=== PATIENT | female | born 1945 | race Caucasian/White ===

== ENCOUNTER 2020-12-11 10:22 | Day surgery (SDC) | payer MEDICARE ==
[~2020-12-11] VITALS: Ht 165.1 cm; Wt 69.6 kg
[~2020-12-11 10:22] MED LIST: CHOL10002 PO; GABA100 PO; HYDACE5325 PO; LEVSOD100 PO; LEVSOD50 PO; LISI20 PO; Metrocream45 GM; ORLI120 PO; OXYACE5T PO; Omeprazole20 M1 PO; SIMV40 PO; VENL150ER PO
== END 2020-12-11 13:32 | disposition home or self-care (01) ==
LOC: ORSCSDS 10:22
PROVIDERS: Internal Medicine Gastroenterology
PROC: 0DBH8ZX Excision of Cecum, Via Natural or Artificial Opening Endoscopic, Diagnostic (ICD-10-PCS; principal; 2020-12-11 12:00)
PROC: 0DB78ZX Excision of Stomach, Pylorus, Via Natural or Artificial Opening Endoscopic, Diagnostic (ICD-10-PCS; principal; 2020-12-11 12:00)
PROC: 0DB98ZX Excision of Duodenum, Via Natural or Artificial Opening Endoscopic, Diagnostic (ICD-10-PCS; principal; 2020-12-11 12:00)
PROC: 0DBE8ZX Excision of Large Intestine, Via Natural or Artificial Opening Endoscopic, Diagnostic (ICD-10-PCS; principal; 2020-12-11 12:00)
PROC: 0DBL8ZX Excision of Transverse Colon, Via Natural or Artificial Opening Endoscopic, Diagnostic (ICD-10-PCS; principal; 2020-12-11 12:00)
DX: R19.7 Diarrhea, unspecified (principal); R13.10 Dysphagia, unspecified; R11.2 Nausea with vomiting, unspecified; K21.9 Gastro-esophageal reflux disease without esophagitis; R14.0 Abdominal distension (gaseous); K31.7 Polyp of stomach and duodenum; D12.3 Benign neoplasm of transverse colon; D12.0 Benign neoplasm of cecum; K57.30 Diverticulosis of large intestine without perforation or abscess without bleeding; K64.8 Other hemorrhoids; I10 Essential (primary) hypertension; E78.5 Hyperlipidemia, unspecified; E03.9 Hypothyroidism, unspecified; Z87.891 Personal history of nicotine dependence; Z79.899 Other long term (current) drug therapy
CPT/HCPCS: 88305; 88342; J2704; J7120

== ENCOUNTER 2021-08-12 05:57 | Day surgery (SDC) | payer MEDICARE ==
[~2021-08-12] VITALS: Ht 165.1 cm; Wt 72.2 kg
[~2021-08-12 05:57] MED LIST changes: +AZIT250 PO; +CEPH500 PO; -CHOL10002 PO; +EUTHYROX50 MCG PO; -LEVSOD50 PO; +POTCHL20ER PO; +VISBIOME 112.51 EACH PO; +VITAMIN D31000 UNI1 PO; +ZESTRIL40 M1 PO
--- NOTE | 2021-08-12 06:57 | NUR ---
PT ADMITTED TO [facility]. AGREES WITH PLANNED SURGERY. LUNG SOUNDS CLEAR. NOZIN TO NARES BILATERALLY PER ORDER. PT UP TO VOID.
--- NOTE | 2021-08-12 18:20 | NUR ---
SHIFT SUMMARY PT A&OX4, VSS/RA, S/P R TKA, AQUACEL CDI, ELEVATED, TEDS/SCDS/POLAR AGUSTÍN. PAIN MANAGED WITH 5 MG OXY/TORADOL/TYLENOL. CHANEL PO. VOIDING WELL. AMB W/SBA/FWW/GB; PHYSICAL THERAPY KRISTI'Aubrey, SECOND SESSION AT 0800 TOMORROW. WILL REPORT TO CORONA SANCHEZ RN.
[2021-08-13 04:29] LABS: BASOPHILS ABSOLUTE AUTO 0.03 K/mm3 (0.00-0.23); BASOPHILS PERCENT AUTO 1 % (0-2); EOSINOPHILS PERCENT AUTO 2 % (0-6); Hemoglobin 9.2 g/dL (11.5-16.0); IMMATURE GRAN ABSOLUTE AUTO 0.01 K/mm3 (0.00-0.10); IMMATURE GRAN PERCENT AUTO 0 % (0-1); LYMPHOCYTES ABSOLUTE AUTO 0.82 K/mm3 (0.84-5.20); LYMPHOCYTES PERCENT AUTO 15 % (21-46); MONOCYTES ABSOLUTE AUTO 0.44 K/mm3 (0.16-1.47); MONOCYTES PERCENT AUTO 8 % (4-13); Mean Corpuscular HGB 32.7 pg (26.0-34.0); Mean Corpuscular HGB Conc 32.9 g/dL (31.5-36.5); Mean Corpuscular Volume 100 fL (80-100); Mean Platelet Volume 10.9 fL (9.1-12.4); NEUTROPHILS ABSOLUTE AUTO 3.92 K/mm3 (1.96-9.15); NEUTROPHILS PERCENT AUTO 74 % (41-73); Platelet Count 158 K/mm3 (150-400); RDW Coefficient Variation 12.7 % (11.7-14.2); RDW Standard Deviation 46.3 fL (35.1-46.3); Red Blood Cell Count 2.81 M/mm3 (3.80-5.20); White Blood Cell Count 5.32 K/mm3 (4.00-11.30)
[2021-08-13 05:35] LABS: Anion Gap 9 mmol/L (6-16); Blood Urea Nitrogen 10 mg/dL (8-24); Bun/Creatinine Ratio 15.8 (12.0-20.0); CO2, Blood 26 mmol/L (21-32); Calcium, Blood 8.7 mg/dL (8.5-10.1); Chloride, Blood 104 mmol/L (98-108); Creatinine, Blood 0.63 mg/dL (0.40-1.00); Glomerular Filtration Rate >60 (60-); Glucose, Blood 117 mg/dL (70-99); Potassium, Blood 4.3 mmol/L (3.5-5.5); Sodium, Blood 139 mmol/L (136-145)
[2021-08-13 05:39] LABS: Magnesium, Blood 1.1 mg/dL (1.6-2.4)
--- NOTE | 2021-08-13 05:42 | NUR ---
SHIFT SUMMARY PT A&O X4 AND IN PLEASENT MOOD. POD 1 TKA. PT RESTED COMFORTABLY IN BED T/O SHIFT. SBA TO BATHROOM T/O SHIFT W/ STEADY GAIT. TOLERATING PO INTAKE AND VOIDING WELL. PPP. AQUACEL IN PLACE CDI. CALL LIGHT W/IN REACH.
[2021-08-13] MEDS ORDERED: OXAYDO5 M1 PO (09:44)
[2021-08-13] MEDS ORDERED: ASPIR 8181 M1 PO (10:11)
--- NOTE | 2021-08-13 10:58 | NUR ---
DISCHARGE SUMMARY PT A&OX4, VSS, LEFT FLOOR VIA WC WITH RN, TO GO HOME WITH FRIEND, WITH ALL PERSONAL POSSESSIONS INCLUDING DC PACKET, 1 NARC SCRIPT. DC INSTRUCTIONS PROVIDED. PT REP UNDERSTANDING THOSE INSTRUCTIONS. IV DC'D.
--- NOTE | 2021-08-13 11:01 | NUR ---
08/13/21 1101 Joleen Hand VERIFICATIONS: EDIT CHART.
== END 2021-08-13 11:00 | disposition home or self-care (01) ==
LOC: ORSCMMR 05:57 → ORD 09:30 → ORSCMMR 09:30 → SURS 10:30 → ORSCMMR 10:45
PROVIDERS: Orthopaedic Surgery
PROC: 8E0Y0CZ Robotic Assisted Procedure of Lower Extremity, Open Approach (ICD-10-PCS; principal; 2021-08-12 07:30)
PROC: 0SRC0JA Replacement of Right Knee Joint with Synthetic Substitute, Uncemented, Open Approach (ICD-10-PCS; principal; 2021-08-12 07:30)
DX: M17.11 Unilateral primary osteoarthritis, right knee (principal); I10 Essential (primary) hypertension; K21.9 Gastro-esophageal reflux disease without esophagitis; F41.8 Other specified anxiety disorders; E78.5 Hyperlipidemia, unspecified; Z87.891 Personal history of nicotine dependence; Z79.899 Other long term (current) drug therapy
CPT/HCPCS: 27447; S2900; 36415; 73560-RT; 80048; 83735; 85025; 97110; 97161; A9270; C1776; J0171; J0690; J0735; J1885; J2704; J2795; J3010; J3475; J7120

== ENCOUNTER 2022-06-30 10:29 | Day surgery (SDC) | payer OTHER ==
[~2022-06-30] VITALS: Ht 165.1 cm; Wt 72.8 kg
[~2022-06-30 10:29] MED LIST changes: +ASPIR 8181 M1 PO; +OXAYDO5 M1 PO
--- NOTE | 2022-06-30 12:43 | NUR ---
assumed care of patient no change or needs at this time.
--- NOTE | 2022-06-30 14:21 | NUR ---
History, Chart, Medications and Allergies reviewed before start of procedure. Patient confirms NPO status and agrees with scheduled surgery. PT BELONGINGS BROUGHT TO PACU FOR SAFE KEEPING.
--- NOTE | 2022-06-30 18:28 | NUR ---
SHIFT SUMMARY PT A&OX4, VSS/RA, CHANEL PO, AWAITING POST OP VOID, SITTING UP IN BED EATING DINNER, PAIN MANAGED PER EMAR. S/P L TKA, AQUACEL CDI. WILL REPORT TO ONCOMING NOC RN.
--- NOTE | 2022-06-30 20:13 | NUR ---
THIS RN ASSESSED PATIENT AND AMBULATED TO BSC, DID NIGHT MEDS. HANDED PATIENT OFF TO SERGIO BERNAL AND GAVE REPORT.
--- NOTE | 2022-07-01 05:40 | NUR ---
SUMMARY PT PAIN MANAGED WELL PER EMAR. PT HAS BEEN AMBULATING TO BATHROOM WITHOUT ISSUE. PT HAS SLEPT SOME DURING SHIFT. PT CURRENTLY AWAKE AND IN GOOD SPIRITS. CALL LIGHT IN REACH.
[2022-07-01 06:04] LABS: BASOPHILS ABSOLUTE AUTO 0.02 K/mm3 (0.00-0.23); BASOPHILS PERCENT AUTO 0 % (0-2); EOSINOPHILS PERCENT AUTO 0 % (0-6); Hematocrit 32.1 % (33.0-51.0); Hemoglobin 10.9 g/dL (11.5-16.0); IMMATURE GRAN ABSOLUTE AUTO 0.05 K/mm3 (0.00-0.10); IMMATURE GRAN PERCENT AUTO 1 % (0-1); LYMPHOCYTES ABSOLUTE AUTO 0.71 K/mm3 (0.84-5.20); LYMPHOCYTES PERCENT AUTO 8 % (21-46); MONOCYTES ABSOLUTE AUTO 0.33 K/mm3 (0.16-1.47); MONOCYTES PERCENT AUTO 4 % (4-13); Mean Corpuscular HGB 33.7 pg (26.0-34.0); Mean Corpuscular Volume 99 fL (80-100); Mean Platelet Volume 10.7 fL (9.1-12.4); NEUTROPHILS ABSOLUTE AUTO 7.81 K/mm3 (1.96-9.15); NEUTROPHILS PERCENT AUTO 88 % (41-73); Platelet Count 232 K/mm3 (150-400); RDW Coefficient Variation 12.4 % (11.7-14.2); RDW Standard Deviation 45.2 fL (35.1-46.3); Red Blood Cell Count 3.23 M/mm3 (3.80-5.20); White Blood Cell Count 8.92 K/mm3 (4.00-11.30)
[2022-07-01 06:16] LABS: Bun/Creatinine Ratio 17.1 (12.0-20.0); Creatinine, Blood 0.76 mg/dL (0.40-1.00); Magnesium, Blood 1.1 mg/dL (1.6-2.4); Potassium, Blood 4.2 mmol/L (3.5-5.5)
[2022-07-01] MEDS ORDERED: ASPI81CH PO (10:21)
[2022-07-01] MEDS ORDERED: ACET500 PO (10:21)
[2022-07-01] MEDS ORDERED: OXYC5 PO (10:21)
--- NOTE | 2022-07-01 12:20 | NUR ---
Pt. is sitting in her recliner, anticipating discharge. Pt. welcomes my visit. Pt. is pleasant. Rapport is established, and Pt. displayed evidence of trust as she share her life story. Through theraputic listening was able to give some pastoral hiv counselor and comfort. Prayed with Pt. Pt. verbalized gratitude for the spiritual care visit. occupational therapy instructor arrived before prayer. Pt. vebrlaized gratitude for the spiritual care visit.
--- NOTE | 2022-07-01 13:00 | NUR ---
DISCHARGE PATIENT CLEARED THERPAY WELL. EATING, DRINKING, & VOIDING WELL. PAIN MANAGED PER EMAR. AQUACEL IN PLACE, C/D/I. DISCUSSED DISCHARGE INSTRUCTIONS & SENT WITH PATIENT. SENT POLAR PACK & EXTRA DRESSINGS WITH PATIENT. ESCORTED OUT VIA W/C.
== END 2022-07-01 13:00 | disposition home or self-care (01) ==
LOC: ORSCMMR 10:29 → SURS 17:03 → ORSCMMR 07-01 13:00
PROVIDERS: Orthopaedic Surgery
PROC: 0SRD0JA Replacement of Left Knee Joint with Synthetic Substitute, Uncemented, Open Approach (ICD-10-PCS; principal; 2022-06-30 14:00)
PROC: 8E0Y0CZ Robotic Assisted Procedure of Lower Extremity, Open Approach (ICD-10-PCS; principal; 2022-06-30 14:00)
DX: M17.12 Unilateral primary osteoarthritis, left knee (principal); I10 Essential (primary) hypertension; E78.5 Hyperlipidemia, unspecified; F41.8 Other specified anxiety disorders; K21.9 Gastro-esophageal reflux disease without esophagitis; Z87.891 Personal history of nicotine dependence; Z79.899 Other long term (current) drug therapy
CPT/HCPCS: 27447; 20985; S2900; 36415; 73560-LT; 80048; 83735; 85025; 97110; 97116; 97161; A9270; C1776; J0171; J0690; J0735; J1100; J1885; J2250; J2370; J2405; J2704; J2795; J3010; J3475; J7120

== ENCOUNTER 2022-07-04 09:33 | Emergency (ER) | payer OTHER ==
[~2022-07-04] VITALS: Ht 165.1 cm; Wt 68.0 kg
[~2022-07-04 09:33] MED LIST changes: +ACET500 PO; +ASPI81CH PO; +OXYC5 PO
== END 2022-07-04 11:00 | disposition home or self-care (01) ==
LOC: ER 09:33
DX: L76.22 Postprocedural hemorrhage of skin and subcutaneous tissue following other procedure (principal); Y83.8 Other surgical procedures as the cause of abnormal reaction of the patient, or of later complication, without mention of misadventure at the time of the procedure; I10 Essential (primary) hypertension; E78.5 Hyperlipidemia, unspecified; E03.9 Hypothyroidism, unspecified; K21.9 Gastro-esophageal reflux disease without esophagitis; F32.A Depression, unspecified; Z88.2 Allergy status to sulfonamides; Z79.899 Other long term (current) drug therapy; Z79.82 Long term (current) use of aspirin
CPT/HCPCS: 12020; 99284-25

== ENCOUNTER → 2022-07-17 | Outpatient (CLI) | payer OTHER ==
[2022-07-17 18:56] LABS: BASOPHILS PERCENT AUTO 1 % (0-2); EOSINOPHILS ABSOLUTE AUTO 0.16 K/mm3 (0.00-0.68); EOSINOPHILS PERCENT AUTO 2 % (0-6); Hematocrit 33.8 % (33.0-51.0); Hemoglobin 11.2 g/dL (11.5-16.0); IMMATURE GRAN ABSOLUTE AUTO 0.03 K/mm3 (0.00-0.10); IMMATURE GRAN PERCENT AUTO 0 % (0-1); LYMPHOCYTES PERCENT AUTO 22 % (21-46); MONOCYTES ABSOLUTE AUTO 0.62 K/mm3 (0.16-1.47); MONOCYTES PERCENT AUTO 8 % (4-13); Mean Corpuscular HGB 31.7 pg (26.0-34.0); Mean Corpuscular HGB Conc 33.1 g/dL (31.5-36.5); Mean Corpuscular Volume 96 fL (80-100); Mean Platelet Volume 10.5 fL (9.1-12.4); NEUTROPHILS ABSOLUTE AUTO 5.37 K/mm3 (1.96-9.15); NEUTROPHILS PERCENT AUTO 66 % (41-73); Platelet Count 699 K/mm3 (150-400); RDW Coefficient Variation 12.2 % (11.7-14.2); RDW Standard Deviation 42.4 fL (35.1-46.3); Red Blood Cell Count 3.53 M/mm3 (3.80-5.20); White Blood Cell Count 8.08 K/mm3 (4.00-11.30)
[2022-07-17 18:59] LABS: Percent Saturation 14.2 % (15.0-50.0)
[2022-07-17 19:03] LABS: Albumin, Blood 3.9 g/dL (3.4-5.0); Albumin/Globulin Ratio 1.1 (0.8-1.8); Bilirubin, Total 0.3 mg/dL (0.1-1.0); Bun/Creatinine Ratio 25.9 (12.0-20.0); Calcium, Blood 9.7 mg/dL (8.5-10.1); Creatinine, Blood 0.54 mg/dL (0.40-1.00); Globulin, Blood 3.7 g/dL (2.2-4.0); Potassium, Blood 4.4 mmol/L (3.5-5.5); Thyroid Stimulating Hormone 5.09 uIU/mL (0.360-4.800); Total Protein, Blood 7.6 g/dL (6.4-8.2)
== END | disposition home or self-care (01) ==
LOC: LAB 16:08 → LAB SHORT 16:08
PROVIDERS: Internal Medicine
DX: I10 Essential (primary) hypertension (principal); E03.9 Hypothyroidism, unspecified; E55.9 Vitamin D deficiency, unspecified; E61.1 Iron deficiency
CPT/HCPCS: 80053; 82306; 82728; 83540; 83550; 84443; 85025

== ENCOUNTER 2024-01-10 15:33 | Emergency (ER) | payer OTHER ==
[~2024-01-10] VITALS: Ht 167.6 cm; Wt 72.6 kg
[2024-01-10 15:56] LABS: BASOPHILS ABSOLUTE AUTO 0.06 K/mm3 (0.00-0.23); BASOPHILS PERCENT AUTO 1 % (0-2); EOSINOPHILS ABSOLUTE AUTO 0.08 K/mm3 (0.00-0.68); EOSINOPHILS PERCENT AUTO 1 % (0-6); Hematocrit 37.5 % (33.0-51.0); Hemoglobin 12.7 g/dL (11.5-16.0); IMMATURE GRAN ABSOLUTE AUTO 0.02 K/mm3 (0.00-0.10); IMMATURE GRAN PERCENT AUTO 0 % (0-1); LYMPHOCYTES ABSOLUTE AUTO 1.78 K/mm3 (0.84-5.20); LYMPHOCYTES PERCENT AUTO 25 % (21-46); MONOCYTES ABSOLUTE AUTO 0.66 K/mm3 (0.16-1.47); MONOCYTES PERCENT AUTO 9 % (4-13); Mean Corpuscular HGB 33.3 pg (26.0-34.0); Mean Corpuscular HGB Conc 33.9 g/dL (31.5-36.5); Mean Corpuscular Volume 98 fL (80-100); Mean Platelet Volume 10.4 fL (9.1-12.4); NEUTROPHILS ABSOLUTE AUTO 4.45 K/mm3 (1.96-9.15); NEUTROPHILS PERCENT AUTO 63 % (41-73); Platelet Count 249 K/mm3 (150-400); RDW Coefficient Variation 12.4 % (11.7-14.2); RDW Standard Deviation 44.8 fL (35.1-46.3); Red Blood Cell Count 3.81 M/mm3 (3.80-5.20); White Blood Cell Count 7.05 K/mm3 (4.00-11.30)
[2024-01-10 16:15] LABS: Albumin, Blood 4.2 g/dL (3.4-5.0); Albumin/Globulin Ratio 1.4 (0.8-1.8); Bilirubin, Total 0.3 mg/dL (0.1-1.0); Bun/Creatinine Ratio 28.1 (12.0-20.0); Calcium, Blood 9.2 mg/dL (8.5-10.1); Creatinine, Blood 0.53 mg/dL (0.40-1.00); Potassium, Blood 4.1 mmol/L (3.5-5.5); Total Protein, Blood 7.2 g/dL (6.4-8.2)
[2024-01-10] MEDS ORDERED: Ondansetron HCl 2 MG / ML 2ML Vial IV ONE (17:40)
[2024-01-10] MEDS ORDERED: Ketorolac Tromethamine 30mg Vial IV ONE (17:40)
[2024-01-10 18:14] VITALS: BP 157/75
== END 2024-01-10 19:05 | disposition home or self-care (01) ==
LOC: ER 15:33
PROVIDERS: Student in an Organized Health Care Education/Training Program
DX: G44.209 Tension-type headache, unspecified, not intractable (principal); I10 Essential (primary) hypertension; E78.5 Hyperlipidemia, unspecified; E03.9 Hypothyroidism, unspecified; Z79.899 Other long term (current) drug therapy; Z79.890 Hormone replacement therapy; Z79.82 Long term (current) use of aspirin; Z88.2 Allergy status to sulfonamides; Z96.653 Presence of artificial knee joint, bilateral; Z87.891 Personal history of nicotine dependence
CPT/HCPCS: 70450; 80053; 85025; J1885; J2405

== ENCOUNTER → 2024-09-10 | Outpatient (CLI) | payer OTHER | LOC: LAB SHORT 12:47 → LAB 12:47 | DX: R30.0 Dysuria (principal) | CPT/HCPCS: 87086 ==

== ENCOUNTER 2025-06-08 13:14 | Day surgery (SDC) | payer OTHER ==
[~2025-06-08] VITALS: Ht 165.1 cm; Wt 71.4 kg
[~2025-06-08 13:14] MED LIST changes: +Glycopyrrolate 0.2 MG/ML 1MLVIAL ONE; +Ondansetron HCl 2 MG / ML 2ML Vial ONE; +ePHEDrine Sulfate 50 MG/ML 1ML Injection ONE
[2025-06-08] MEDS ORDERED: ESTRADIOL42.5 GM (14:51)
[2025-06-08 17:04] VITALS: BP 140/76
== END 2025-06-08 16:55 | disposition home or self-care (01) ==
LOC: ORSCSDS 13:14
PROVIDERS: Specialist
PROC: 0DB98ZX Excision of Duodenum, Via Natural or Artificial Opening Endoscopic, Diagnostic (ICD-10-PCS; principal; 2025-06-08 15:00)
PROC: 0DBE8ZX Excision of Large Intestine, Via Natural or Artificial Opening Endoscopic, Diagnostic (ICD-10-PCS; principal; 2025-06-08 15:00)
PROC: 0D758ZZ Dilation of Esophagus, Via Natural or Artificial Opening Endoscopic (ICD-10-PCS; principal; 2025-06-08 15:00)
PROC: 0DB58ZX Excision of Esophagus, Via Natural or Artificial Opening Endoscopic, Diagnostic (ICD-10-PCS; principal; 2025-06-08 15:00)
PROC: 0DB68ZX Excision of Stomach, Via Natural or Artificial Opening Endoscopic, Diagnostic (ICD-10-PCS; principal; 2025-06-08 15:00)
PROC: 0DBL8ZX Excision of Transverse Colon, Via Natural or Artificial Opening Endoscopic, Diagnostic (ICD-10-PCS; principal; 2025-06-08 15:00)
DX: R19.4 Change in bowel habit (principal); K63.5 Polyp of colon; K64.8 Other hemorrhoids; K57.30 Diverticulosis of large intestine without perforation or abscess without bleeding; K31.7 Polyp of stomach and duodenum; K22.2 Esophageal obstruction; K44.9 Diaphragmatic hernia without obstruction or gangrene; R10.13 Epigastric pain; K21.9 Gastro-esophageal reflux disease without esophagitis; R11.2 Nausea with vomiting, unspecified; Z80.0 Family history of malignant neoplasm of digestive organs; Z86.0101 Personal history of adenomatous and serrated colon polyps; F41.9 Anxiety disorder, unspecified; F32.A Depression, unspecified; E78.5 Hyperlipidemia, unspecified; I10 Essential (primary) hypertension; Z79.899 Other long term (current) drug therapy; Z87.891 Personal history of nicotine dependence
CPT/HCPCS: 88305; 88342; C1769; J0461; J2003; J2405; J2704; J7120